=== PATIENT | female | born 1970 | race Caucasian/White ===

== ENCOUNTER 2017-02-01 14:01 | Emergency (ER) | payer MEDICAID ==
[2016-02-10 10:01] VITALS: BMI 57.7
[~2017-02-01 14:01] MED LIST: PERCOCET 10/3251 TA1 PO; ULTRAM50 MG PO; ZANTAC150 MG PO; ZESTORETIC 20/21 TAB PO
== END 2017-02-01 16:16 | disposition home or self-care (01) ==
LOC: D.ER 14:01
DX: R51 Headache (principal); I10 Essential (primary) hypertension

== ENCOUNTER 2017-03-26 05:27 | Emergency (ER) | payer MEDICAID ==
[2016-02-10 10:01] VITALS: BMI 57.7
[2017-03-26 06:13] LABS: APPEARANCE HAZY (CLEAR); BILIRUBIN NEGATIVE (NEGATIVE); COLOR YELLOW (YELLOW); GLUCOSE NEGATIVE (NEGATIVE); KETONE NEGATIVE (NEGATIVE); LEUKOCYTE ESTERASE 1+ (NEGATIVE); NITRITE NEGATIVE (NEGATIVE); PH 5.5 (5.0-6.0); PROTEIN NEGATIVE (NEGATIVE); UROBILINOGEN NORMAL (NORMAL)
[2017-03-26 06:17] LABS: EPITHELIAL CELLS 0-5 /hpf (0-5); RED CELLS - URINE OCC /hpf (0-5)
[2017-03-26 06:18] LABS: BACTERIA FEW /hpf (NONE SEEN); HYALINE CAST RARE /lpf (NONE SEEN)
[2017-03-26 06:26] LABS: BASOPHILS 0.3 % (0-2); EOSINOPHILS 1.3 % (0-7); HEMATOCRIT 36.9 % (36.0-48.0); HEMOGLOBIN 11.8 g/dL (12-16); IMMATURE GRANULOCYTES 0.2 % (0-5); LYMPHOCYTES 22.4 % (15-50); MCH 25.5 pg (26.0-34.0); MCV 79.9 fL (80.0-100.0); MEAN PLATELET VOLUME 9.9 fL (7.4-10.4); NEUTROPHILS 69.8 % (40-80); PLATELET COUNT 145 10x3/uL (130-400); RBC 4.62 10x6/uL (4.00-5.40); RDW 14.8 % (11.5-14.5); WBC 6.2 10x3/uL (4.8-10.8)
[2017-03-26 06:37] LABS: ALKALINE PHOSPHATASE 86 U/L (46-116); ALT (SGPT) 15 U/L (10-68); BILIRUBIN - TOTAL 0.29 mg/dL (0.2-1.3); CALC OSMOLALITY 283 mosm/kg (275-300); CARBON DIOXIDE 27.7 mmol/L (21.0-32.0); CHLORIDE - SERUM 107 mmol/L (98-107); CREATININE - SERUM 0.7 mg/dL (0.6-1.3); GLUCOSE 100 mg/dL (74-106); POTASSIUM - SERUM 3.4 mmol/L (3.5-5.1); PROTEIN - SERUM 7.1 g/dL (6.4-8.2); SODIUM 142 mmol/L (136-145); UREA NITROGEN 15 mg/dL (7-18); eGFR NON AFRICAN AMERICAN > 90 mL/min (90-120)
== END 2017-03-26 06:52 | disposition home or self-care (01) ==
LOC: D.ER 05:27
PROVIDERS: Family Medicine
DX: R10.30 Lower abdominal pain, unspecified (principal); I10 Essential (primary) hypertension

== ENCOUNTER 2017-04-10 08:50 | Emergency (ER) | payer MEDICAID ==
[2016-02-10 10:01] VITALS: BMI 57.7
== END 2017-04-10 10:52 | disposition home or self-care (01) ==
LOC: D.ER 08:50
DX: J01.90 Acute sinusitis, unspecified (principal); J20.9 Acute bronchitis, unspecified; R91.8 Other nonspecific abnormal finding of lung field; I10 Essential (primary) hypertension

== ENCOUNTER 2017-06-30 00:38 | Emergency (ER) | payer MEDICAID ==
[2016-02-10 10:01] VITALS: BMI 57.7
[2017-06-30 01:05] LABS: APPEARANCE CLEAR (CLEAR); BILIRUBIN NEGATIVE (NEGATIVE); COLOR YELLOW (YELLOW); GLUCOSE NEGATIVE (NEGATIVE); KETONE NEGATIVE (NEGATIVE); LEUKOCYTE ESTERASE NEGATIVE (NEGATIVE); NITRITE NEGATIVE (NEGATIVE); PROTEIN NEGATIVE (NEGATIVE); UROBILINOGEN NORMAL (NORMAL)
== END 2017-06-30 01:20 | disposition home or self-care (01) ==
LOC: D.ER 00:38
PROVIDERS: Emergency Medicine
DX: I10 Essential (primary) hypertension (principal)

== ENCOUNTER 2017-08-01 21:10 | Emergency (ER) | payer MEDICAID ==
[2016-02-10 10:01] VITALS: BMI 57.7
== END 2017-08-01 22:53 | disposition home or self-care (01) ==
LOC: D.ER 21:10
DX: S46.911A Strain of unspecified muscle, fascia and tendon at shoulder and upper arm level, right arm, initial encounter (principal); X58.XXXA Exposure to other specified factors, initial encounter; Y93.89 Activity, other specified; Y92.029 Unspecified place in mobile home as the place of occurrence of the external cause; I10 Essential (primary) hypertension

== ENCOUNTER 2017-09-12 14:58 | Emergency (ER) | payer MEDICAID ==
[2016-02-10 10:01] VITALS: BMI 57.7
[2017-09-12 15:55] LABS: APPEARANCE CLEAR (CLEAR); BILIRUBIN NEGATIVE (NEGATIVE); COLOR YELLOW (YELLOW); GLUCOSE NEGATIVE (NEGATIVE); KETONE NEGATIVE (NEGATIVE); NITRITE NEGATIVE (NEGATIVE); PROTEIN NEGATIVE (NEGATIVE); UROBILINOGEN NORMAL (NORMAL)
== END 2017-09-12 17:01 | disposition home or self-care (01) ==
LOC: D.ER 14:58
PROVIDERS: Emergency Medicine
DX: R10.9 Unspecified abdominal pain (principal); R14.3 Flatulence; I10 Essential (primary) hypertension

== ENCOUNTER 2018-02-16 20:55 | Emergency (ER) | payer MEDICAID ==
[2016-02-10 10:01] VITALS: BMI 57.7
[2018-02-16 21:39] LABS: BASOPHILS 0.4 % (0-2); EOSINOPHILS 4.4 % (0-7); HEMATOCRIT 36.4 % (36.0-48.0); HEMOGLOBIN 11.1 g/dL (12-16); IMMATURE GRANULOCYTES 0.4 % (0-5); LYMPHOCYTES 22.3 % (15-50); MCH 25.3 pg (26.0-34.0); MCHC 30.5 g/dL (31.0-37.0); MCV 82.9 fL (80.0-100.0); MEAN PLATELET VOLUME 9.7 fL (7.4-10.4); NEUTROPHILS 65.5 % (40-80); PLATELET COUNT 158 10x3/uL (130-400); RBC 4.39 10x6/uL (4.00-5.40); RDW 15.1 % (11.5-14.5); WBC 6.9 10x3/uL (4.8-10.8)
[2018-02-16 21:52] LABS: ALKALINE PHOSPHATASE 102 U/L (46-116); ALT (SGPT) 14 U/L (10-68); BILIRUBIN - TOTAL 0.24 mg/dL (0.2-1.3); CALC OSMOLALITY 286 mosm/kg (275-300); CALCIUM 8.4 mg/dL (8.5-10.1); CARBON DIOXIDE 28.1 mmol/L (21.0-32.0); CHLORIDE - SERUM 108 mmol/L (98-107); CREATININE - SERUM 0.7 mg/dL (0.6-1.3); GLUCOSE 94 mg/dL (74-106); POTASSIUM - SERUM 3.6 mmol/L (3.5-5.1); PROTEIN - SERUM 7.2 g/dL (6.4-8.2); SODIUM 142 mmol/L (136-145); UREA NITROGEN 25 mg/dL (7-18); eGFR NON AFRICAN AMERICAN > 90 mL/min (90-120)
[2018-02-16 21:55] LABS: TROPONIN-I < 0.017 ng/mL (0.000-0.060)
== END 2018-02-16 23:48 | disposition home or self-care (01) ==
LOC: D.ER 20:55
PROVIDERS: Family Medicine
DX: R06.02 Shortness of breath (principal); R07.9 Chest pain, unspecified; I10 Essential (primary) hypertension

== ENCOUNTER 2018-02-25 18:54 | Emergency (ER) | payer MEDICAID ==
[2016-02-10 10:01] VITALS: BMI 57.7
[2018-02-25 19:51] LABS: BASOPHILS 0.3 % (0-2); EOSINOPHILS 3.3 % (0-7); HEMOGLOBIN 11.1 g/dL (12-16); IMMATURE GRANULOCYTES 0.3 % (0-5); LYMPHOCYTES 20.6 % (15-50); MCH 25.2 pg (26.0-34.0); MCHC 30.8 g/dL (31.0-37.0); MCV 81.6 fL (80.0-100.0); MEAN PLATELET VOLUME 9.5 fL (7.4-10.4); MONOCYTES 5.7 % (2-11); NEUTROPHILS 69.8 % (40-80); PLATELET COUNT 152 10x3/uL (130-400); RBC 4.41 10x6/uL (4.00-5.40); RDW 15.5 % (11.5-14.5)
[2018-02-25 19:56] LABS: APPEARANCE CLEAR (CLEAR); BILIRUBIN NEGATIVE (NEGATIVE); COLOR YELLOW (YELLOW); GLUCOSE NEGATIVE (NEGATIVE); KETONE NEGATIVE (NEGATIVE); NITRITE NEGATIVE (NEGATIVE); PROTEIN NEGATIVE (NEGATIVE); SPECIFIC GRAVITY 1.015 (1.005-1.020); UROBILINOGEN NORMAL (NORMAL)
[2018-02-25 20:38] LABS: ALBUMIN 3.2 g/dL (3.4-5.0); ALKALINE PHOSPHATASE 94 U/L (46-116); ALT (SGPT) 18 U/L (10-68); CALC OSMOLALITY 288 mosm/kg (275-300); CALCIUM 8.8 mg/dL (8.5-10.1); CARBON DIOXIDE 26.9 mmol/L (21.0-32.0); CHLORIDE - SERUM 107 mmol/L (98-107); CREATININE - SERUM 0.7 mg/dL (0.6-1.3); GLUCOSE 88 mg/dL (74-106); POTASSIUM - SERUM 4.1 mmol/L (3.5-5.1); PROTEIN - SERUM 7.4 g/dL (6.4-8.2); SODIUM 144 mmol/L (136-145); UREA NITROGEN 21 mg/dL (7-18); eGFR NON AFRICAN AMERICAN > 90 mL/min (90-120)
== END 2018-02-25 22:21 | disposition home or self-care (01) ==
LOC: D.ER 18:54
PROVIDERS: Family Medicine
DX: M54.5 Low back pain (principal); M79.672 Pain in left foot; M79.671 Pain in right foot; I10 Essential (primary) hypertension

== ENCOUNTER 2018-04-03 04:23 | Emergency (ER) | payer MEDICAID ==
[~2018-04-03] VITALS: Ht 160 cm; Wt 159.1 kg
[2018-04-03 04:28] VITALS: Ht 160 cm; Wt 159.1 kg
[2018-04-03] MEDS ORDERED: HYDROCODONE-APA1 TAB PO (04:31)
[2018-04-03 05:21] VITALS: BP 138/79
== END 2018-04-03 05:22 | disposition home or self-care (01) ==
LOC: D.ER 04:23
DX: M47.896 Other spondylosis, lumbar region (principal); I10 Essential (primary) hypertension

== ENCOUNTER 2018-04-25 22:07 | Emergency (ER) | payer MEDICAID ==
[~2018-04-25] VITALS: Ht 160 cm; Wt 150.0 kg
[~2018-04-25 22:07] MED LIST changes: +HYDROCODONE-APA1 TAB PO
[2018-04-25 22:31] VITALS: Ht 160 cm; Wt 150.0 kg
[2018-04-26] MEDS ORDERED: LISINOPRIL-HCTZ1 T13 PO (02:54)
[2018-04-26 03:52] VITALS: BP 167/104
== END 2018-04-26 03:52 | disposition home or self-care (01) ==
LOC: D.ER 22:07
DX: Z91.14 Patient's other noncompliance with medication regimen (principal); R60.0 Localized edema; I10 Essential (primary) hypertension

== ENCOUNTER 2018-04-29 00:14 | Observation (INO) | payer MEDICAID ==
--- NOTE | ~2018-04-29 | HP ---
PATIENT: JOHNNY TURNER MEDICAL RECORD: [id number] ACCOUNT: [id number] [facility] 66 ADMISSION DATE: 04/29/18 HISTORY AND PHYSICAL EXAMINATION HISTORY OF PRESENT ILLNESS: Johnny Turner is a 48-year-old female with no known coronary disease, has history of hypertension, morbid obesity, strong family history of coronary artery disease admitted with chest tightness and pressure, approximately 6 hours duration, waxing and waning course, multiple risk factors, continues to have pain despite blood pressure control. Given aspirin as well. We are asked to see her concerning cardiovascular status. PAST MEDICAL HISTORY: 1. Morbid obesity. 2. Hypertension. ALLERGIES: DARVOCET, TORADOL, MORPHINE. MEDICATIONS: Typically include lisinopril 20/25 one p.o. daily, Galata 10/325 one p.o. q.6 hours, Zantac 150 mg p.o. every day. SOCIAL HISTORY: Nonsmoker and nondrinker. She is able to take care of ADLs. No set exercise program. REVIEW OF SYSTEMS: The patient reports easy bruising but reports no swollen glands. The patient reports no fever, no night sweats, no significant weight gain, no significant weight loss. No significant exercise tolerance. The patient reports no dry eyes, no irritation, no vision change. Patient reports no difficulty hearing and no ear pain. Patient reports no frequent nose bleeds or nose and sinus problems. Patient reports on arm pain on exertion. No shortness of breath while lying down. No history of heart murmur. Patient reports no cough, no wheezing or coughing up blood. Patient reports no abdominal pain, no vomiting. Normal appetite. No diarrhea and not vomiting blood. No nausea and no constipation. Patient reports no incontinence. No difficulty urinating. No hematuria. No increased frequency. Patient reports no muscle aches. No weakness, no arthralgias, no back pain. No swelling of the extremities. Patient reports no abnormal mole, no jaundice, no rashes. Reports no loss of consciousness. No weakness and no numbness. No seizures, dizziness, or headaches. The patient reports no depression, no sleep disturbance, feeling safe in a relationship and no alcohol abuse. Patient reports on fatigue. Reports no runny nose or sinus pressure. No itching, no hives, and no frequent sneezing. PHYSICAL EXAMINATION: GENERAL: Pleasant female complaining of a mild to moderate chest pressure. VITAL SIGNS: Blood pressure 164/86, pulse 63 and regular. HEENT: Normocephalic, atraumatic. NECK: No JVD or bruit. HEART: Regular. LUNGS: Good air excursion. ABDOMEN: Soft, nontender. EXTREMITIES: 1+ edema, 2+ pulses. NEUROLOGIC: Grossly intact. DIAGNOSTIC DATA: ECG without acute change. HISTORY AND PHYSICAL [id number] JOHNNY TURNER IMPRESSION: Acute coronary syndrome, multiple risk factors. PLAN: For angiography, intervention based on above. TRANSINT:[id number] Voice Confirmation ID: [id number] DOCUMENT ID: [id number] HOLLIE OLIVARES MD at 0816 CC: [id number] DICTATION DATE: 04/29/18 0937 SILVERWARE BUFFING MACHINE OPERATOR: 04/29/18 1115 DIS IN 04/29/[address] [address]
--- NOTE | ~2018-04-29 | HEMODYNAMI ---
PATIENT:JOHNNY TURNER MEDICAL RECORD: [id number] : 66 [id number] ADMISSION DATE: 04/29/18 Generatedon:04/29/201811:18 Patient name: JOHNNY TURNER Patient #: [id number] SSN: : 1970 Date of study: 04/29/2018 Page: Of Hemodynamic Procedure Report Patient Data Patient Demographics Procedure consent was obtained First Name: JOHNNY Gender: Female Last Name: YUE : 1970 Middle Initial: J Age: 48 year(s) Patient #: [id number] Race: Unknown Additional ID: [id number] Contact details [address]: [address] [place] [address] State: [place] City: [place] Zip code: [address] Admission Admission Data Admission Date: 04/29/2018 Admission Time: 2:57 Room #: D.E07 Procedure Procedure Types Cath Procedure Diagnostic Procedure LHC LHC w/Coronaries Procedure Description Procedure Date Procedure Date: 04/29/2018 Procedure Start Time: 11:01 Procedure End Time: 11:16 Procedure Staff Name Function Javid Solorzano MD Performing Physician Jenaro Thomas RN Canal Equipment Mechanic Hector Paulino RT Monitor Madelyn Wade RT Scrub Levi Lezama RN Nurse Procedure Data Cath Procedure Fluoroscopy Diagnostic fluoroscopy Total fluoroscopy Time: 5.2 time: 5.2 min min Diagnostic fluoroscopy Total fluoroscopy dose: dose: 1096 mGy 1096 mGy Contrast Material Contrast Material Type Amount (ml) Isovue 300 71 Entry Location Entry Primary Successful Side Size Upsize Upsize Entry Closure Thakur ccessful Closure Location (Fr) 1 (Fr) 2 (Fr) Remarks Device Remarks Radial Right 6 Fr Mechanical artery Short Compression Estimated blood loss: 10 ml Diagnostic catheters Device Type Used For End Catheter Placement DIAGNOSTIC [place] 110cm 5 Procedure Fr catheter ([id number]) DIAGNOSTIC JL 3.5 5Fr Procedure catheter ([id number]) DIAGNOSTIC Pigtail 5Fr Procedure catheter ([id number]) Procedure Complications No complications Procedure Medications Medication Administration Route Dosage 0.9% NaCl I.V. 100 ml/hr Oxygen etCO2 Nasal cannula 2 l/min Heparin Flush Bag added to field 2 bags (1000units/500ml NS) Lidocaine 2% added to field 20 Radial Cocktail added to field 1 syringe (Verapomil 2mg/Nitro 400mcg/Heparin 1500units) Radial Cocktail I.A. 1 syringe (Verapomil 2mg/Nitro 400mcg/Heparin 1500units) Versed I.V. 2 mg Fentanyl I.V. 100 mcg Versed I.V. 2 mg Fentanyl I.V. 100 mcg Hemodynamics Rest Heart Rate: 66 (bpm) Pressure Samples Time Site Value (mmHg) Purpose Heart Use Rate(bpm) 11:03 AO 160/99(126) Snapshot 75 11:11 LV 178/20,22 Snapshot 74 11:12 AO 160/91(121) Pullback 66 11:12 LV 164/19,24 Pullback 66 Gradients Valve Time Site 1 Site 2 Mean SEP/DFP Peak To Heart Use (mmHg) (sec/min) Peak Rate (mmHg) (bpm) Aortic 11:12 LV AO 10 18 4 66 164/19,24 160/91(121) Calculations Valve P-P Mean Valve Index Valve Source Name Gradient Area Flow (cm2) Aortic 4 10 4 10 Snapshots Pre Cath Intra NCS Post Cath Vital Signs Time Heart Resp SPO2 etCO2 NIBP (mmHg) Rhythm Pain Sedation Rate (ipm) (%) (mmHg) Status Level (bpm) 10:58:12 65 16 95 41.5 148/96(0) NSR 0 (11) 10(A) , No pain 11:03:11 63 19 90 26.4 146/94(0) NSR 0 (11) 10(A) , No pain 11:03:58 70 19 93 22.6 149/71(130) NSR 0 (11) 10(A) , No pain 11:08:57 67 16 96 40 154/94(0) NSR 0 (11) 10(A) , No pain 11:09:30 64 14 96 35.4 161/91(129) NSR 0 (11) 10(A) , No pain 11:15:10 60 16 93 24.1 163/96(112) NSR 0 (11) 10(A) , No pain Medications Time Medication Route Dose Verified Delivered Reason Notes Effectiveness by by 10:56:33 0.9% NaCl I.V. 100 Levi Levi Per ml/hr Teja Lezama physician RN RN 10:57:52 Oxygen etCO2 2 l/min Levi Levi Per Nasal Teja Lezama physician cannula RN RN 10:58:03 Heparin Flush added 2 bags Levi Levi used for Bag to Teja Lezama procedure (1000units/500ml field RN RN NS) 10:58:15 Lidocaine 2% added 20ml Levi Levi for local to vial Lorigan Maryigan anesthetic field RN RN 10:58:29 Radial Cocktail added 1 Levi Levi used for (Verapomil to syringe Maryigan Teja procedure 2mg/Nitro field WOODS RN 400mcg/Heparin 1500units) 11:00:24 Versed I.V. 2 mg Levi Levi for sedation Teja Lezama RN, RN 11:00:32 Fentanyl I.V. 100 mcg Levi Levi for sedation Teja Lezama RN, RN 11:00:55 Radial Cocktail I.A. 1 Levi Javid for (Verapomil syringe Lorigan Rashad vasodilation 2mg/Nitro CHUCK LEWIS 400mcg/Heparin 1500units) 11:04:22 Versed I.V. 2 mg Levi Levi for sedation Teja Lezama RN, RN 11:12:49 Fentanyl I.V. 100 mcg Levi Levi for sedation Teja Lezama RN typing office worker Log Time Note 10:10:28 Jenaro Thomas RN sent for patient. Start room use. 10:34:10 Time tracking: Regular hours (M-F 7:00 - 5:00) 10:34:14 Plan of Care:Hemodynamics will remain stable., Cardiac rhythm will remain stable., Comfort level will be maintained., Respiratory function will remain adequate., Patient/ family verbilizes understanding of procedure., Procedure tolerated without complication., Recovers from procedure without complications.. 10:34:23 Patient received from ED to CCL 1 Alert and oriented. Tansferred to table in Supine position. 10:34:26 Warm blankets applied, and rafia hugger turned on for patient comfort. 10:34:27 Correct patient and procedure confirmed by team. 10:34:28 Signed procedure consent form obtained from patient. 10:34:30 ECG and BP/O2 sat monitors applied to patient. 10:55:01 Vital chart was started 10:56:33 0.9% NaCl 100 ml/hr I.V. was administered by Levi Lezama RN; Per physician; 10:57:47 Baseline sample Acquired. 10:57:52 Oxygen 2 l/min etCO2 Nasal cannula was administered by Levi Lezama RN; Per physician; 10:57:52 Rhythm: sinus rhythm 10:57:53 Full Disclosure recording started 10:58:02 H&P Date Dictated: 04/29/2018 ER History on chart.. 10:58:03 Heparin Flush Bag (1000units/500ml NS) 2 bags added to field was administered by Levi Lezama RN; used for procedure; 10:58:03 Pre-procedure instructions explained to patient. 10:58:04 Pre-op teaching completed and patient verbalized understanding. 10:58:07 Family in patients room. 10:58:09 Patient NPO since Midnight. 10:58:10 Is the patient allergic to Iodine/contrast media? No. 10:58:15 Lidocaine 2% 20ml vial added to field was administered by Levi Lezama RN; for local anesthetic; 10:58:20 Is patient on blood thinner?No 10:58:29 Radial Cocktail (Verapomil 2mg/Nitro 400mcg/Heparin 1500units) 1 syringe added to field was administered by Levi Lezama RN; used for procedure; 10:58:40 Patient diabetic? No. 10:58:46 Previous problem with sedation/anesthesia? No ? 10:58:53 Snore? Yes 10:58:54 Sleep apnea? No 10:58:55 Deviated septum? No 10:58:56 Opens mouth fully? Yes 10:58:57 Sticks out tongue? Yes 10:59:06 Airway obstruction? No ? 10:59:12 Dentures? No lost teeth 10:59:16 Pre procedure: right dorsailis pedis pulse 1+ Palpable, but thready & weak; easily obliterated 10:59:32 Modified Feliciano's test Ulnar < 7 seconds 10:59:36 Patient pain scale 0/10 ?. 10:59:42 IV patent on arrival in left hand with 0.9% NaCl at [facility]. 10:59:44 Lab results completed and on chart. 10:59:48 Right Radial & Right Groin area was prepped with chlora-prep and draped in sterile fashion 10:59:49 Alarms reviewed by R. N. 10:59:49 Sharps counted by scrub and verified by R.N. 10:59:51 --------ALL STOP TIME OUT------ 10:59:51 Final Timeout: patient, procedure, and site verified with staff and physician. All members of the team are in agreement. 10:59:54 Right Radial & Right Groin site verified by team. 10:59:59 Physical assessment completed. ASA score P 2 - A patient with mild systemic disease as per Javid Solorzano MD. 11:00:03 Sedation plan: IV Moderate Sedation Medication:Versed, Fentanyl 11:00:24 Versed 2 mg I.V. was administered by Levi Lezama RN; for sedation; 11:00:32 Fentanyl 100 mcg I.V. was administered by Levi Lezama RN; for sedation; 11:00:52 Use device set Radial Dx or PCI 11:00:55 Radial Cocktail (Verapomil 2mg/Nitro 400mcg/Heparin 1500units) 1 syringe I.A. was administered by Javid Solorzano MD; for vasodilation; 11:00:55 ACIST Manifold (65815) opened to sterile field. 11:00:56 ACIST Hand Control (10909) opened to sterile field. 11:00:58 Tegaderm 4 x 4 (1626W) opened to sterile field. 11:00:59 ACIST Syringe (08103) opened to sterile field. 11:01:00 Medline Cath Pack ([id number]) opened to sterile field. 11:01:00 Bag Decanter () opened to sterile field. 11:01:01 DIAGNOSTIC WIRE .035 260cm J wire (880361) opened to sterile field. 11:01:01 MBrace Wrist Support ([id number]) opened to sterile field. 11:01:03 SHEATH 6Fr Prelude Radial ([id number]) opened to sterile field. 11:01:10 Procedure started. 11:01:13 Local anesthetic to right radial artery with Lidocaine 2% by Javid Solorzano MD.INITIAL ACCESS ONLY 11:02:20 A 6 Fr Short sheath was inserted into the Right Radial artery 11:02:59 A DIAGNOSTIC [place] 110cm 5 Fr catheter (004235) was advanced over the wire and used for Procedure. 11:04:04 RCA angiography performed. 11:04:22 Versed 2 mg I.V. was administered by Levi Lezama RN; for sedation; 11:06:02 Catheter exchanged over wire. 11:06:31 A DIAGNOSTIC JL 3.5 5Fr catheter ([id number]) was advanced over the wire and used for Procedure. 11:08:42 LCA angiography performed. 11:09:13 Catheter exchanged over wire. 11:09:51 A DIAGNOSTIC Pigtail 5Fr catheter ([id number]) was advanced over the wire and used for Procedure. 11:11:47 LV angiography performed. 11:11:49 LV gram done using GUPTA 11:12:07 EF : 55 % 11:12:10 Catheter removed. 11:12:12 TR BAND Large ([id number]) opened to sterile field. 11:12:49 Fentanyl 100 mcg I.V. was administered by Levi Lezama RN; for sedation; 11:12:53 Sheath removed intact; hemostasis achieved with Mechanical Compression to the Right Radial artery. 11:12:55 Procedure ended.(Physican Out) 11:14:03 Fluoroscopy time 05.20 minutes. 11:14:08 Fluoroscopy dose: 1096 mGy 11:14:08 Flurop Dose total: 1096 11:14:12 Contrast amount:Isovue 300 71ml. 11:14:14 Sharps counted by scrub and verified by R.N. 11:14:17 TR band inflated with 12cc of air. 11:14:25 Insertion/operative site no bleeding no hematoma. 11:14:27 Post Procedure Pulses reassessed and unchanged 11:14:34 Post-procedure physical assessment completed. ASA score P 2 - A patient with mild systemic disease as per Javid Solorzano MD. 11:14:39 Post procedure rhythm: unchanged. 11:14:42 Estimated blood loss: 10 ml 11:14:44 Post procedure instruction explained to patient.Patient verbalizes understanding. 11:14:45 Patient needs reinforcement of post procedure teaching. 11:15:31 Procedure and supply charges have been captured, reviewed, submitted and are correct. 11:15:34 Procedure Complication : No complications 11:15:37 Vital chart was stopped 11:15:37 See physician's report for complete and final results. 11:15:49 Report given to Pre/Post Procedure Room. 11:16:07 Patient transfered to Pre/Post Procedure Room with Stretcher. 11:16:31 Procedure ended. 11:16:31 Full Disclosure recording stopped 11:16:43 End room use (Document Last) Device Usage Item Name Manufacture Quantity Catalog Number Hospital Part Current M inimal Lot# / Charge Number Stock Stock Serial# Code ACIST Manifold Acist 1 72405 137566 977499 267281 5 (84452) [employer] Inc ACIST Hand Acist 1 64548 883735 566454 667016 5 Control (84151) [employer] Inc Tegaderm 4 x 4 3M 1 1626W 077584 602824 294103 5 (1626W) ACIST Syringe Acist 1 23266 184453 758192 823444 2 0 (39286) [employer] Inc Medline Cath Cardinal 1 [id number] 813884 61433 918611 5 Pack Health ([id number]) Bag Decanter Microtek 1 2001S 768320 31891 496576 5 (2001S) Medical Inc. DIAGNOSTIC WIRE St Eric 1 802527 196369 648384 108153 3 0 .035 260cm J wire (672788) MBrace Wrist Advanced 1 140-0250-00 021335 95449 878264 5 Support Vascular ([id number]) Dynamics SHEATH 6Fr Merit 1 [id number] 077222 853828 551673 5 Prelude Radial Medical ([id number]) DIAGNOSTIC Terumo 1 40-4813 137772 750076 942376 5 [place] 110cm 5 Fr catheter (816726) DIAGNOSTIC JL Cardinal 1 [id number] 647194 944201 639212 5 3.5 5Fr Health catheter (140036C) DIAGNOSTIC Cardinal 1 [id number] 837151 090282 789639 5 Pigtail 5Fr Health catheter (215717H) TR BAND Large Terumo 1 [id number] 769932 077926 330002 4 0 ([id number]) Signature Audit [place] Stage Time Signature Unsigned Intra-Procedure 04/29/2018 Hector Paulino 11:18:45 AM RT(R) Signatures Monitor : Hector Paulino RT Signature : Date : Time : [address] [place] [address]
--- NOTE | ~2018-04-29 | OP ---
PATIENT NAME: JOHNNY TURNER MEDICAL RECORD: [id number] :66 LOCATION:[facility]- ADMISSION DATE:04/29/18 SURGEON: HOLLIE OLIVARES MD DATE OF OPERATION: 04/29/2018 PROCEDURE: Left heart catheterization, selective coronary angiography and right radial artery approach. CATHETERS: A 5-Latvian sheath, 5/4 left and right Alyson. The patient was returned to the peralta. Sheath removed. TR band was placed. FINDINGS: Left ventriculography in 30-degree GUPTA view: Normal wall motion and normal systolic function. CORONARY ANATOMY: LEFT MAIN: Large vessel, free of disease. LAD: Large vessel, free of disease. CIRCUMFLEX: Moderate vessel, free of disease. RIGHT CORONARY ARTERY: Huge dominant artery, gives rise to PDA and free of disease. IMPRESSION: Normal LV systolic function, normal coronary anatomy, noncardiac etiology of chest pain. TRANSINT:[id number] Voice Confirmation ID: [id number] DOCUMENT ID: [id number] HOLLIE OLIVARES MD at 0816 CC: [id number] DICTATION DATE: 04/29/18 1118 SCHOOL ADMISSIONS REPRESENTATIVE: 04/29/18 1308 DIS IN 04/29/18 [place] [id number] [place] [id number]
[~2018-04-29 00:14] MED LIST changes: +LISINOPRIL-HCTZ1 T13 PO
[2018-04-29 00:34] VITALS: Ht 160 cm
[2018-04-29 02:12] LABS: BASOPHILS 0.6 % (0-2); EOSINOPHILS 2.5 % (0-7); HEMATOCRIT 37.5 % (36.0-48.0); HEMOGLOBIN 11.7 g/dL (12-16); IMMATURE GRANULOCYTES 0.2 % (0-5); LYMPHOCYTES 27.9 % (15-50); MCH 25.3 pg (26.0-34.0); MCHC 31.2 g/dL (31.0-37.0); MEAN PLATELET VOLUME 9.5 fL (7.4-10.4); MONOCYTES 5.9 % (2-11); NEUTROPHILS 62.9 % (40-80); PLATELET COUNT 130 10x3/uL (130-400); RBC 4.63 10x6/uL (4.00-5.40); RDW 15.5 % (11.5-14.5); WBC 5.3 10x3/uL (4.8-10.8)
[2018-04-29 02:26] LABS: ALBUMIN 3.2 g/dL (3.4-5.0); ALKALINE PHOSPHATASE 77 U/L (46-116); ALT (SGPT) 11 U/L (10-68); BILIRUBIN - TOTAL 0.56 mg/dL (0.2-1.3); CALC OSMOLALITY 287 mosm/kg (275-300); CALCIUM 8.6 mg/dL (8.5-10.1); CARBON DIOXIDE 34.8 mmol/L (21.0-32.0); CHLORIDE - SERUM 107 mmol/L (98-107); CREATININE - SERUM 0.6 mg/dL (0.6-1.3); GLUCOSE 95 mg/dL (74-106); POTASSIUM - SERUM 3.4 mmol/L (3.5-5.1); SODIUM 145 mmol/L (136-145); UREA NITROGEN 10 mg/dL (7-18); eGFR NON AFRICAN AMERICAN > 90 mL/min (90-120)
[2018-04-29 02:29] LABS: CREATINE KINASE 50 UL (21-215); TROPONIN-I < 0.017 ng/mL (0.000-0.060)
[2018-04-29 03:50] VITALS: BP 161/78
[2018-04-29 05:02] VITALS: BP 147/64
[2018-04-29 06:08] VITALS: BP 131/64
[2018-04-29 07:26] LABS: CKMB 0.4 U/L (0.0-3.6); CREATINE KINASE 48 UL (21-215); TROPONIN-I < 0.017 ng/mL (0.000-0.060)
[2018-04-29 08:24] VITALS: BP 164/86
[2018-04-29 09:38] LABS: BASOPHILS 0.4 % (0-2); CALC OSMOLALITY 287 mosm/kg (275-300); CALCIUM 8.9 mg/dL (8.5-10.1); CARBON DIOXIDE 30.2 mmol/L (21.0-32.0); CHLORIDE - SERUM 107 mmol/L (98-107); CREATININE - SERUM 0.7 mg/dL (0.6-1.3); EOSINOPHILS 2.1 % (0-7); GLUCOSE 100 mg/dL (74-106); HEMATOCRIT 36.1 % (36.0-48.0); HEMOGLOBIN 11.1 g/dL (12-16); IMMATURE GRANULOCYTES 0.2 % (0-5); LYMPHOCYTES 30.1 % (15-50); MCH 25.1 pg (26.0-34.0); MCHC 30.7 g/dL (31.0-37.0); MCV 81.7 fL (80.0-100.0); MEAN PLATELET VOLUME 9.7 fL (7.4-10.4); MONOCYTES 6.7 % (2-11); NEUTROPHILS 60.5 % (40-80); PLATELET COUNT 125 10x3/uL (130-400); POTASSIUM - SERUM 3.3 mmol/L (3.5-5.1); RBC 4.42 10x6/uL (4.00-5.40); RDW 15.5 % (11.5-14.5); SODIUM 145 mmol/L (136-145); UREA NITROGEN 10 mg/dL (7-18); WBC 5.7 10x3/uL (4.8-10.8); eGFR NON AFRICAN AMERICAN > 90 mL/min (90-120)
[2018-04-29 10:22] VITALS: BP 141/76
== END 2018-04-29 13:56 | disposition home or self-care (01) ==
LOC: D.ER 00:14 → D.EDHOLD 02:57 → OBSVTIME 02:57 → D.EDHOLD 02:57
PROVIDERS: Emergency Medicine; Internal Medicine Interventional Cardiology
DX: R07.89 Other chest pain (principal); K21.9 Gastro-esophageal reflux disease without esophagitis; E66.01 Morbid (severe) obesity due to excess calories; I10 Essential (primary) hypertension

== ENCOUNTER 2018-05-29 16:37 | Emergency (ER) | payer MEDICAID ==
[~2018-05-29] VITALS: Ht 160 cm; Wt 159.1 kg
[2018-05-29 16:53] VITALS: BP 150/72; Ht 160 cm; Wt 159.1 kg
[2018-05-29] MEDS ORDERED: PREDNISONE20 MG PO (17:35)
== END 2018-05-29 18:35 | disposition home or self-care (01) ==
LOC: D.ER 16:37
DX: M25.562 Pain in left knee (principal); E66.01 Morbid (severe) obesity due to excess calories; W18.30XA Fall on same level, unspecified, initial encounter; Y93.89 Activity, other specified; Y92.019 Unspecified place in single-family (private) house as the place of occurrence of the external cause; I10 Essential (primary) hypertension

== ENCOUNTER 2018-06-02 21:02 | Emergency (ER) | payer MEDICAID ==
[~2018-06-02] VITALS: Ht 160 cm; Wt 159.1 kg
[~2018-06-02 21:02] MED LIST changes: +PREDNISONE20 MG PO
[2018-06-02 21:12] VITALS: Ht 160 cm; Wt 159.1 kg
[2018-06-02] MEDS ORDERED: ULTRAM50 MG PO (23:01)
[2018-06-02 23:36] VITALS: BP 173/98
== END 2018-06-02 23:37 | disposition home or self-care (01) ==
LOC: D.ER 21:02
DX: M54.5 Low back pain (principal); S90.122A Contusion of left lesser toe(s) without damage to nail, initial encounter; S80.01XA Contusion of right knee, initial encounter; W18.30XA Fall on same level, unspecified, initial encounter; Y93.89 Activity, other specified; Y92.512 Supermarket, store or market as the place of occurrence of the external cause; M54.16 Radiculopathy, lumbar region; M62.838 Other muscle spasm

== ENCOUNTER 2018-06-14 15:41 | Emergency (ER) | payer MEDICAID ==
[~2018-06-14] VITALS: Ht 160 cm; Wt 159.1 kg
[2018-06-14 15:52] VITALS: Ht 160 cm; Wt 159.1 kg
[2018-06-14] MEDS ORDERED: NORCO 7.5/325 T1 TA1 PO (17:37)
[2018-06-14 18:05] VITALS: BP 159/73
== END 2018-06-14 18:05 | disposition home or self-care (01) ==
LOC: D.ER 15:41
DX: S63.641A Sprain of metacarpophalangeal joint of right thumb, initial encounter (principal); X50.1XXA Overexertion from prolonged static or awkward postures, initial encounter; Y93.89 Activity, other specified; Y92.013 Bedroom of single-family (private) house as the place of occurrence of the external cause; I10 Essential (primary) hypertension

== ENCOUNTER 2018-07-26 05:00 | Day surgery (SDC) | payer MEDICAID ==
[2018-07-25 12:10] LABS: CALC OSMOLALITY 279 mosm/kg (275-300); CARBON DIOXIDE 28.6 mmol/L (21.0-32.0); CHLORIDE - SERUM 105 mmol/L (98-107); CREATININE - SERUM 0.8 mg/dL (0.6-1.3); GLUCOSE 86 mg/dL (74-106); POTASSIUM - SERUM 3.9 mmol/L (3.5-5.1); SODIUM 140 mmol/L (136-145); UREA NITROGEN 18 mg/dL (7-18); eGFR NON AFRICAN AMERICAN 80 mL/min (90-120)
[2018-07-25 12:16] LABS: HEMATOCRIT 37.7 % (36.0-48.0); HEMOGLOBIN 11.9 g/dL (12-16); MCH 26.4 pg (26.0-34.0); MCHC 31.6 g/dL (31.0-37.0); MCV 83.6 fL (80.0-100.0); MEAN PLATELET VOLUME 9.7 fL (7.4-10.4); RBC 4.51 10x6/uL (4.00-5.40); RDW 14.8 % (11.5-14.5); WBC 4.5 10x3/uL (4.8-10.8)
[~2018-07-26] VITALS: Ht 160 cm; Wt 158.8 kg
--- NOTE | ~2018-07-26 | OP ---
PATIENT NAME: JOHNNY TURNER MEDICAL RECORD: [id number] :66 LOCATION:[facility] ADMISSION DATE: SURGEON: MANUEL GOLD DO DATE OF OPERATION: 07/26/2018 PROCEDURE PERFORMED: Right thumb ulnar collateral ligament repair. PREOPERATIVE DIAGNOSIS: Right thumb ulnar collateral ligament rupture. POSTOPERATIVE DIAGNOSIS: Right thumb ulnar collateral ligament rupture. INDICATIONS: Ms. Turner is a 48-year-old female who fell some months ago and ruptured the ulnar collateral ligament of her thumb. She did not know what was wrong with it, just had some weakness and could not pinch and instability. She came and saw my nurse practitioner and he examined her, which showed a widening and instability at the metacarpophalangeal joint of the thumb with stress on the ulnar collateral ligament. MRI was done, which demonstrated a rupture on the femoral neck side over the distal end of the ulnar collateral ligament. At that point, I talked with the patient and informed her we could do nothing if she were to have thumb problems or we could repair the ligament and she will be in a splint for about 6 weeks and then she could use her thumb. She is aware of the risks of damage to nerve and the nerve that runs right along the ulnar side of the thumb, infection, bleeding, need for further surgery, re-rupture of the repair. She was aware of those risks and benefits of the procedure including tightening that thumb up and given her more stability and she consented to the procedure. DESCRIPTION OF PROCEDURE: The patient was taken to the operative suite, laid in supine position, given general anesthetic, given 3 grams Ancef preoperatively. Once that was done, the right upper extremity was prepped and draped in sterile fashion with the tourniquet above the elbow below the drapes. Timeout was performed. Everyone was in agreement with the correct side, site, patient and procedure. Once the timeout was performed, an Esmarch was used to exsanguinate the right upper extremity and inflated to 250 mmHg and was up for 33 minutes. Incision then began over the ulnar side of the metacarpophalangeal joint of the right thumb. Careful dissection was made down to the adductor aponeurosis and this was incised. The ulnar collateral ligament that was ruptured was right there under the adductor aponeurosis. This is dissected out. A 1-0 JuggerKnot anchor was used upon pulling tension on and pulled out using another one and this held and then the 2-0 sutures were used in a horizontal mattress fashion to resuture the ulnar collateral ligament to the proximal phalanx at the insertion site. This was sewed down and then tied down along the edges to other soft tissue giving a very nice tight repair. The thumb was ranged and she had good range of motion, very hard endpoint with stress of that UCL. The adductor aponeurosis was then closed with a leftover 2-0 stitch in a [id number] fashion and the tourniquet was let down. The thumb was then given a digital block with 10 mL of 0.25% Marcaine with epinephrine and the incision site was closed with a 5-0 Monocryl first in an inverted interrupted fashion and a running stitch ran under the skin subcuticularly. Steri-Strips were then placed on the wound. Adaptic, 4 x 4 were then placed in the wound, Webril and then a thumb spica splint with Orthoglass was placed on the patient. She was awakened and taken to recovery in stable condition. Blood loss was minimal. COMPLICATIONS: None. OPERATIVE REPORT [id number] YUE,SARA Debbie TRANSINT:[id number] Voice Confirmation ID: [id number] DOCUMENT ID: [id number] MANUEL GOLD DO at 1057 CC: [id number] DICTATION DATE: 07/26/18 0836 TEAM COORDINATOR: 07/26/18 0959 [facility] 07/26/18 [place] 235460 [place] [address]
[~2018-07-26 05:00] MED LIST changes: +NORCO 7.5/325 T1 TA1 PO
[2018-07-26 06:09] VITALS: BP 150/79; Ht 160 cm; Wt 158.8 kg
[2018-07-26] MEDS ORDERED: DURICEF500 MG PO (08:31)
[2018-07-26] MEDS ORDERED: PERCOCET 7.5/321 TAB PO (08:31)
[2018-07-27] MEDS ORDERED: DILAUDID4 MG PO (02:06)
== END 2018-07-26 10:21 | disposition home or self-care (01) ==
LOC: D.OPS 05:00 → D.PAN 07:30 → D.OPS 07:30 → D.PAN 10:15 → D.OPS 10:15
PROVIDERS: Anesthesiology
DX: S63.418A Traumatic rupture of collateral ligament of other finger at metacarpophalangeal and interphalangeal joint, initial encounter (principal); W19.XXXA Unspecified fall, initial encounter; Z01.812 Encounter for preprocedural laboratory examination

== ENCOUNTER 2018-07-27 01:35 | Emergency (ER) | payer MEDICAID ==
[~2018-07-27] VITALS: Ht 160 cm; Wt 159.2 kg
[~2018-07-27 01:35] MED LIST changes: +DURICEF500 MG PO; +PERCOCET 7.5/321 TAB PO
[2018-07-27 01:42] VITALS: Ht 160 cm; Wt 159.2 kg
[2018-07-27] MEDS ORDERED: DILAUDID4 MG PO (02:06)
[2018-07-27 03:03] VITALS: BP 145/62
== END 2018-07-27 03:04 | disposition home or self-care (01) ==
LOC: D.ER 01:35
DX: M79.641 Pain in right hand (principal); I10 Essential (primary) hypertension

== ENCOUNTER 2018-08-11 17:53 | Emergency (ER) | payer MEDICAID ==
[~2018-08-11] VITALS: Ht 160 cm; Wt 159.5 kg
[~2018-08-11 17:53] MED LIST changes: +DILAUDID4 MG PO
[2018-08-11 18:04] VITALS: Ht 160 cm; Wt 159.5 kg
[2018-08-11 19:03] VITALS: BP 172/87
== END 2018-08-11 19:03 | disposition home or self-care (01) ==
LOC: D.ER 17:53
DX: G89.18 Other acute postprocedural pain (principal); M79.644 Pain in right finger(s); I10 Essential (primary) hypertension

== ENCOUNTER 2018-08-18 00:10 | Emergency (ER) | payer MEDICAID ==
[~2018-08-18] VITALS: Ht 160 cm; Wt 158.6 kg
[2018-08-18 00:18] VITALS: Ht 160 cm; Wt 158.6 kg
[2018-08-18 01:49] VITALS: BP 168/96
== END 2018-08-18 01:50 | disposition home or self-care (01) ==
LOC: D.ER 00:10
DX: G89.18 Other acute postprocedural pain (principal); I10 Essential (primary) hypertension

== ENCOUNTER 2018-09-14 23:43 | Emergency (ER) | payer MEDICAID ==
[~2018-09-14] VITALS: Ht 160 cm; Wt 155.0 kg
[2018-09-14 23:51] VITALS: Ht 160 cm; Wt 155.0 kg
[2018-09-15 01:18] VITALS: BP 161/90
== END 2018-09-15 01:18 | disposition home or self-care (01) ==
LOC: D.ER 23:43
DX: T78.40XA Allergy, unspecified, initial encounter (principal); I10 Essential (primary) hypertension

== ENCOUNTER → 2018-10-22 | Emergency (ER) | payer MEDICAID ==
[~2018-10-22] VITALS: Ht 160 cm; Wt 159.1 kg
[~2018-10-22] MED LIST changes: +ATARAX 25 MG TA25 MG PO
[2018-10-22 20:54] VITALS: BP 151/80; Ht 160 cm; Wt 159.1 kg
== END | disposition home or self-care (01) ==
LOC: D.ER 20:30
DX: L50.9 Urticaria, unspecified (principal)

== ENCOUNTER 2018-11-06 11:21 | Emergency (ER) | payer MEDICAID ==
[~2018-11-06] VITALS: Ht 160 cm; Wt 159.1 kg
[2018-11-06 11:24] VITALS: Ht 160 cm; Wt 159.1 kg
[2018-11-06] MEDS ORDERED: PHENERGAN DM SYR5 ML PO (14:03)
[2018-11-06] MEDS ORDERED: AMOXICILLIN500 M1 PO (14:03)
[2018-11-06 14:56] VITALS: BP 165/93
== END 2018-11-06 14:56 | disposition home or self-care (01) ==
LOC: D.ER 11:21
DX: H66.91 Otitis media, unspecified, right ear (principal); J40 Bronchitis, not specified as acute or chronic; J06.9 Acute upper respiratory infection, unspecified; I10 Essential (primary) hypertension

== ENCOUNTER 2018-11-08 08:02 | Emergency (ER) | payer MEDICAID ==
[~2018-11-08] VITALS: Ht 160 cm; Wt 158.8 kg
[~2018-11-08 08:02] MED LIST changes: +AMOXICILLIN500 M1 PO; +PHENERGAN DM SYR5 ML PO
[2018-11-08 08:08] VITALS: Ht 160 cm; Wt 158.8 kg
[2018-11-08] MEDS ORDERED: ATARAX 25 MG TA25 MG PO (09:22)
[2018-11-08 09:34] VITALS: BP 133/63
== END 2018-11-08 09:30 | disposition home or self-care (01) ==
LOC: D.ER 08:02
DX: L50.9 Urticaria, unspecified (principal); I10 Essential (primary) hypertension

== ENCOUNTER 2018-11-29 11:18 | Emergency (ER) | payer MEDICAID ==
[~2018-11-29] VITALS: Ht 160 cm; Wt 159.1 kg
[2018-11-29 11:23] VITALS: Ht 160 cm; Wt 159.1 kg
[2018-11-29 12:09] LABS: BASOPHILS 0.2 % (0-2); EOSINOPHILS 1.9 % (0-7); HEMATOCRIT 38.5 % (36.0-48.0); IMMATURE GRANULOCYTES 0.7 % (0-5); LYMPHOCYTES 24.8 % (15-50); MCH 26.1 pg (26.0-34.0); MCHC 31.2 g/dL (31.0-37.0); MCV 83.7 fL (80.0-100.0); MEAN PLATELET VOLUME 9.6 fL (7.4-10.4); MONOCYTES 7.1 % (2-11); NEUTROPHILS 65.3 % (40-80); PLATELET COUNT 180 10x3/uL (130-400); RDW 15.8 % (11.5-14.5); WBC 8.6 10x3/uL (4.8-10.8)
[2018-11-29 12:10] LABS: APPEARANCE HAZY (CLEAR); BILIRUBIN NEGATIVE (NEGATIVE); COLOR YELLOW (YELLOW); GLUCOSE NEGATIVE (NEGATIVE); KETONE NEGATIVE (NEGATIVE); NITRITE NEGATIVE (NEGATIVE); PH 5.5 (5.0-6.0); PROTEIN NEGATIVE (NEGATIVE); UROBILINOGEN NORMAL (NORMAL)
[2018-11-29 12:20] LABS: BACTERIA FEW /hpf (NONE SEEN); EPITHELIAL CELLS RARE /hpf (0-5); RED CELLS - URINE 0-5 /hpf (0-5); WHITE CELLS - URINE OCC /hpf (0-5)
[2018-11-29 13:02] LABS: ALBUMIN 2.9 g/dL (3.4-5.0); ALKALINE PHOSPHATASE 97 U/L (46-116); ALT (SGPT) 13 U/L (10-68); BILIRUBIN - TOTAL 0.26 mg/dL (0.2-1.3); CALC OSMOLALITY 286 mosm/kg (275-300); CALCIUM 8.5 mg/dL (8.5-10.1); CARBON DIOXIDE 29.9 mmol/L (21.0-32.0); CHLORIDE - SERUM 106 mmol/L (98-107); CREATININE - SERUM 0.7 mg/dL (0.6-1.3); GLUCOSE 84 mg/dL (74-106); PROTEIN - SERUM 6.8 g/dL (6.4-8.2); SODIUM 144 mmol/L (136-145); UREA NITROGEN 15 mg/dL (7-18); eGFR NON AFRICAN AMERICAN > 90 mL/min (90-120)
[2018-11-29] MEDS ORDERED: ANUSOL-HC25 MG RC (13:31)
[2018-11-29 14:22] VITALS: BP 189/90
== END 2018-11-29 14:23 | disposition home or self-care (01) ==
LOC: D.ER 11:18
PROVIDERS: Emergency Medicine
DX: K64.9 Unspecified hemorrhoids (principal); R10.30 Lower abdominal pain, unspecified; K62.5 Hemorrhage of anus and rectum

== ENCOUNTER 2018-12-02 11:11 | Emergency (ER) | payer MEDICAID ==
[~2018-12-02] VITALS: Ht 160 cm; Wt 159.1 kg
[~2018-12-02 11:11] MED LIST changes: +ANUSOL-HC25 MG RC
[2018-12-02 11:16] VITALS: Ht 160 cm; Wt 159.1 kg
[2018-12-02] MEDS ORDERED: ULTRAM50 MG PO (13:33)
[2018-12-02 13:39] VITALS: BP 153/96
== END 2018-12-02 13:40 | disposition home or self-care (01) ==
LOC: D.ER 11:11
DX: T14.8XXA Other injury of unspecified body region, initial encounter (principal); X58.XXXA Exposure to other specified factors, initial encounter; Y93.89 Activity, other specified; Y92.89 Other specified places as the place of occurrence of the external cause; M54.5 Low back pain; S83.91XA Sprain of unspecified site of right knee, initial encounter; I10 Essential (primary) hypertension

== ENCOUNTER 2018-12-03 19:54 | Emergency (ER) | payer MEDICAID ==
[~2018-12-03] VITALS: Ht 160 cm; Wt 159.1 kg
[2018-12-03 20:08] VITALS: Ht 160 cm; Wt 159.1 kg
[2018-12-04] MEDS ORDERED: ULTRAM50 MG PO (00:52)
[2018-12-04 01:11] VITALS: BP 145/75
== END 2018-12-04 01:12 | disposition home or self-care (01) ==
LOC: D.ER 19:54
DX: S30.0XXA Contusion of lower back and pelvis, initial encounter (principal); W18.30XA Fall on same level, unspecified, initial encounter; Y93.89 Activity, other specified; Y92.019 Unspecified place in single-family (private) house as the place of occurrence of the external cause; I10 Essential (primary) hypertension

== ENCOUNTER 2018-12-09 19:19 | Emergency (ER) | payer MEDICAID ==
[~2018-12-09] VITALS: Ht 160 cm; Wt 159.1 kg
[2018-12-09 19:58] VITALS: Ht 160 cm; Wt 159.1 kg
[2018-12-10] MEDS ORDERED: ULTRAM50 MG PO (00:16)
[2018-12-10 00:39] VITALS: BP 164/91
== END 2018-12-10 00:39 | disposition home or self-care (01) ==
LOC: D.ER 19:19
DX: S80.11XA Contusion of right lower leg, initial encounter (principal); W18.31XA Fall on same level due to stepping on an object, initial encounter; Y93.89 Activity, other specified; Y92.019 Unspecified place in single-family (private) house as the place of occurrence of the external cause

== ENCOUNTER 2018-12-25 15:28 | Emergency (ER) | payer MEDICAID ==
[~2018-12-25] VITALS: Ht 160 cm; Wt 163.3 kg
[2018-12-25 15:35] VITALS: Ht 160 cm; Wt 163.3 kg
[2018-12-25 16:14] LABS: APPEARANCE CLEAR (CLEAR); BILIRUBIN NEGATIVE (NEGATIVE); COLOR YELLOW (YELLOW); GLUCOSE NEGATIVE (NEGATIVE); KETONE NEGATIVE (NEGATIVE); NITRITE NEGATIVE (NEGATIVE); PROTEIN TRACE mg/dL (NEGATIVE); UROBILINOGEN NORMAL (NORMAL)
[2018-12-25 16:15] LABS: BACTERIA FEW /hpf (NONE SEEN); EPITHELIAL CELLS 0-5 /hpf (0-5); MUCUS <1+ /lpf (NONE SEEN); RED CELLS - URINE 0-5 /hpf (0-5); WHITE CELLS - URINE 0-5 /hpf (0-5)
[2018-12-25] MEDS ORDERED: FLAGYL500 MG PO (16:33)
[2018-12-25 17:39] VITALS: BP 185/91
== END 2018-12-25 17:14 | disposition home or self-care (01) ==
LOC: D.ER 15:28
PROVIDERS: Family Medicine
DX: Z20.2 Contact with and (suspected) exposure to infections with a predominantly sexual mode of transmission (principal); L50.9 Urticaria, unspecified

== ENCOUNTER 2019-01-17 09:00 | Outpatient (CLI) | payer MEDICAID ==
[2018-12-25 15:35] VITALS: BMI 62.1
[~2019-01-17 09:00] MED LIST changes: +FLAGYL500 MG PO
== END 2019-01-17 10:00 | disposition home or self-care (01) ==
LOC: D.MAMMO 09:00
PROVIDERS: ATTEND Family Medicine
DX: Z12.31 Encounter for screening mammogram for malignant neoplasm of breast (principal)

== ENCOUNTER → 2019-01-29 08:59 | Outpatient (CLI) | payer MEDICAID ==
[2018-12-25 15:35] VITALS: BMI 62.1
[~2019-01-29 08:59] MED LIST changes: +HYDROCHLOROTHIA25 MG PO
== END | disposition home or self-care (01) ==
LOC: D.LABREF 08:59
PROVIDERS: ATTEND Orthopaedic Surgery
DX: M25.562 Pain in left knee (principal)

== ENCOUNTER 2019-02-03 14:03 | Emergency (ER) | payer MEDICAID ==
[~2019-02-03] VITALS: Ht 160 cm; Wt 159.1 kg
[~2019-02-03 14:03] MED LIST changes: -HYDROCHLOROTHIA25 MG PO
[2019-02-03 14:30] VITALS: Ht 160 cm; Wt 159.1 kg
[2019-02-03] MEDS ORDERED: HYDROCHLOROTHIA25 MG PO (20:00)
[2019-02-03 20:22] VITALS: BP 132/85
== END 2019-02-03 20:23 | disposition home or self-care (01) ==
LOC: D.ER 14:03
DX: L50.9 Urticaria, unspecified (principal)

== ENCOUNTER 2019-02-15 21:08 | Emergency (ER) | payer MEDICAID ==
[~2019-02-15 21:08] MED LIST changes: +HYDROCHLOROTHIA25 MG PO
[2019-02-15 21:33] VITALS: BMI 62.1
[2019-02-15 22:33] VITALS: BP 174/88
== END 2019-02-15 22:35 | disposition home or self-care (01) ==
LOC: D.ER 21:08
DX: M25.561 Pain in right knee (principal); M54.5 Low back pain; W18.30XA Fall on same level, unspecified, initial encounter; Y93.89 Activity, other specified; Y92.89 Other specified places as the place of occurrence of the external cause

== ENCOUNTER 2019-02-17 12:49 | Emergency (ER) | payer MEDICAID ==
[~2019-02-17] VITALS: Ht 160 cm; Wt 159.1 kg
[2019-02-17 12:53] VITALS: Ht 160 cm; Wt 159.1 kg
[2019-02-17 15:54] VITALS: BP 144/52
== END 2019-02-17 15:55 | disposition home or self-care (01) ==
LOC: D.ER 12:49
DX: M54.6 Pain in thoracic spine (principal)

== ENCOUNTER → 2019-04-15 10:26 | Outpatient (CLI) | payer MEDICAID ==
[2019-02-17 12:53] VITALS: BMI 62.1
== END | disposition home or self-care (01) ==
LOC: D.NM 08:15
PROVIDERS: ATTEND Orthopaedic Surgery
DX: T84.093A Other mechanical complication of internal left knee prosthesis, initial encounter (principal)

== ENCOUNTER → 2019-05-07 17:36 | Outpatient (CLI) | payer MEDICAID ==
[2019-02-17 12:53] VITALS: BMI 62.1
== END | disposition home or self-care (01) ==
LOC: D.LABREF 17:36
PROVIDERS: ATTEND Orthopaedic Surgery
DX: M25.561 Pain in right knee (principal); Z11.8 Encounter for screening for other infectious and parasitic diseases

== ENCOUNTER 2019-05-26 12:56 | Emergency (ER) | payer MEDICAID ==
[~2019-05-26] VITALS: Ht 160 cm; Wt 161.9 kg
[2019-05-26 13:03] VITALS: Ht 160 cm; Wt 161.9 kg
[2019-05-26] MEDS ORDERED: HYDROCODON-ACE1 EA10 PO (13:06)
[2019-05-26 13:39] LABS: BASOPHILS 0.1 % (0-2); EOSINOPHILS 0.7 % (0-7); HEMOGLOBIN 14.5 g/dL (12-16); IMMATURE GRANULOCYTES 0.2 % (0-5); LYMPHOCYTES 13.2 % (15-50); MCHC 33.7 g/dL (31.0-37.0); MCV 83.2 fL (80.0-100.0); MEAN PLATELET VOLUME 9.5 fL (7.4-10.4); MONOCYTES 3.5 % (2-11); NEUTROPHILS 82.3 % (40-80); PLATELET COUNT 170 10x3/uL (130-400); RBC 5.17 10x6/uL (4.00-5.40); RDW 14.2 % (11.5-14.5); WBC 10.7 10x3/uL (4.8-10.8)
[2019-05-26 13:48] LABS: APTT 26.8 SECONDS (22.8-39.4); INR 1.09 (0.85-1.17); PROTIME 13.6 SECONDS (11.6-15.0)
[2019-05-26 13:56] LABS: ALBUMIN 3.3 g/dL (3.4-5.0); ALKALINE PHOSPHATASE 91 U/L (46-116); ALT (SGPT) 10 U/L (10-68); BILIRUBIN - TOTAL 0.58 mg/dL (0.2-1.3); CALC OSMOLALITY 286 mosm/kg (275-300); CALCIUM 8.4 mg/dL (8.5-10.1); CARBON DIOXIDE 27.3 mmol/L (21.0-32.0); CHLORIDE - SERUM 107 mmol/L (98-107); CREATININE - SERUM 0.9 mg/dL (0.6-1.3); GLUCOSE 96 mg/dL (74-106); POTASSIUM - SERUM 3.9 mmol/L (3.5-5.1); PROTEIN - SERUM 7.2 g/dL (6.4-8.2); SODIUM 142 mmol/L (136-145); UREA NITROGEN 24 mg/dL (7-18); eGFR NON AFRICAN AMERICAN 70 mL/min (90-120)
[2019-05-26 14:06] LABS: AMYLASE - SERUM 38 U/L (25-115); CKMB 1.4 U/L (0.0-3.6); CREATINE KINASE 72 UL (21-215); LIPASE 76 U/L (73-393); TROPONIN-I < 0.017 ng/mL (0.000-0.060)
[2019-05-26 14:29] LABS: APPEARANCE HAZY (CLEAR); BACTERIA MODERATE /hpf (NONE SEEN); BILIRUBIN NEGATIVE (NEGATIVE); COLOR YELLOW (YELLOW); EPITHELIAL CELLS 0-5 /hpf (0-5); GLUCOSE NEGATIVE (NEGATIVE); KETONE NEGATIVE (NEGATIVE); NITRITE NEGATIVE (NEGATIVE); PROTEIN TRACE mg/dL (NEGATIVE); RED CELLS - URINE 0-5 /hpf (0-5); SPECIFIC GRAVITY 1.015 (1.005-1.020); UROBILINOGEN NORMAL (NORMAL); WHITE CELLS - URINE 0-5 /hpf (0-5)
[2019-05-26 14:30] LABS: MUCUS <1+ /lpf (NONE SEEN)
[2019-05-26] MEDS ORDERED: LEVAQUIN750 MG PO (16:09)
[2019-05-26] MEDS ORDERED: FLORASTOR250 MG PO (16:09)
[2019-05-26] MEDS ORDERED: FLAGYL500 MG PO (16:09)
[2019-05-26 18:34] VITALS: BP 161/94
== END 2019-05-26 18:34 | disposition home or self-care (01) ==
LOC: D.ER 12:56
PROVIDERS: Family Medicine
DX: R11.2 Nausea with vomiting, unspecified (principal); K52.9 Noninfective gastroenteritis and colitis, unspecified; M79.602 Pain in left arm

== ENCOUNTER 2019-12-14 15:31 | Emergency (ER) | payer MEDICAID ==
[2019-12-14 15:45] VITALS: Ht 160 cm
[2019-12-14 18:38] VITALS: BP 178/88
== END 2019-12-14 18:38 | disposition home or self-care (01) ==
LOC: D.ER 15:31
DX: S93.401A Sprain of unspecified ligament of right ankle, initial encounter (principal); W19.XXXA Unspecified fall, initial encounter; Y93.9 Activity, unspecified; Y92.9 Unspecified place or not applicable; I10 Essential (primary) hypertension

== ENCOUNTER 2020-02-07 20:20 | Emergency (ER) | payer MEDICAID ==
[~2020-02-07] VITALS: Ht 160 cm; Wt 159.1 kg
[~2020-02-07 20:20] MED LIST changes: +FLORASTOR250 MG PO; +HYDROCODON-ACE1 EA10 PO; +LEVAQUIN750 MG PO
[2020-02-07 20:28] VITALS: Ht 160 cm; Wt 159.1 kg
[2020-02-07] MEDS ORDERED: ULTRAM50 MG PO (20:33)
[2020-02-07] MEDS ORDERED: CLINDAMYCIN HC300 MG PO (21:56)
[2020-02-07] MEDS ORDERED: KEFLEX500 MG PO (21:56)
[2020-02-07 22:49] VITALS: BP 178/101
== END 2020-02-07 22:49 | disposition home or self-care (01) ==
LOC: D.ER 20:20
DX: L03.311 Cellulitis of abdominal wall (principal); I10 Essential (primary) hypertension

== ENCOUNTER 2020-03-13 14:36 | Emergency (ER) | payer MEDICAID ==
[~2020-03-13] VITALS: Ht 160 cm; Wt 179.6 kg
[~2020-03-13 14:36] MED LIST changes: +CLINDAMYCIN HC300 MG PO; +KEFLEX500 MG PO
[2020-03-13 14:38] VITALS: Ht 160 cm; Wt 179.6 kg
[2020-03-13 15:46] VITALS: BP 168/89
== END 2020-03-13 15:46 | disposition home or self-care (01) ==
LOC: D.ER 14:36
DX: S76.012A Strain of muscle, fascia and tendon of left hip, initial encounter (principal); X58.XXXA Exposure to other specified factors, initial encounter; I10 Essential (primary) hypertension

== ENCOUNTER 2020-07-17 21:09 | Emergency (ER) | payer MEDICAID ==
[~2020-07-17] VITALS: Ht 160 cm; Wt 155.5 kg
[2020-07-17 21:14] VITALS: Ht 160 cm; Wt 155.5 kg
[2020-07-17 22:28] VITALS: BP 145/77
--- NOTE | 2020-07-17 23:40 | NUR ---
DR. GERMAN NOTIFIED AND REVIEWED PT's BEHAVIOR AND ASSESSMENT RESULTS. PT IS A LOW RISK PER DR. GERMAN. DR GERMAN STATED TO GIVE RESOURCES TO PT AT TIME OF DISCHARGE. NO FURTHER ORDERS AT THIS TIME.RESOURCE REVIEWED WITH PT AND HE VERBALIZED UNDERSTANDING.
== END 2020-07-17 22:29 | disposition home or self-care (01) ==
LOC: D.ER 21:09
DX: M25.562 Pain in left knee (principal); G89.29 Other chronic pain; I10 Essential (primary) hypertension; Z76.5 Malingerer [conscious simulation]